=== PATIENT | female | born 1970 | race Hispanic/Latino ===

== ENCOUNTER → 2018-02-18 | Day surgery (SDC) | payer BC ==
[2018-02-16 11:29] LABS: BASOPHILS # (AUTO) 0.1 (0.0-0.1); BASOPHILS % 0.6 % (0.0-1.0); EOSINOPHILS # (AUTO) 0.1 (0.0-0.4); EOSINOPHILS % 0.9 % (0.0-6.0); HEMATOCRIT 35.5 % (34.2-44.1); HEMOGLOBIN 12.2 g/dL (12.0-16.0); LYMPHOCYTES # (AUTO) 1.9 (1.0-3.2); MEAN CORPUSCULAR HGB CONC 34.4 g/dL (31-35); MEAN CORPUSCULAR VOLUME 87.4 fL (81-99); MONOCYTES # (AUTO) 0.8 (0.2-0.8); MONOCYTES % 9.4 % (4.4-11.3); NEUTROPHILS # (AUTO) 5.7 (2.1-6.9); NEUTROPHILS % 66.9 % (38.7-80.0); PLATELET COUNT 211 x10e3/uL (140-360); RED BLOOD COUNT 4.06 x10e6/uL (3.6-5.1); RED CELL DISTRIBUTION WIDTH 12.7 % (11.7-14.4)
[2018-02-16 11:31] LABS: CLARITY,URINE CLEAR (CLEAR); COLOR,URINE YELLOW (YELLOW); KETONES,URINE NEGATIVE (NEGATIVE); LEUKOCYTE ESTERASE ,URINE NEGATIVE (NEGATIVE); NITRITE,URINE NEGATIVE (NEGATIVE); PROTEIN,URINE DIPSTICK NEGATIVE (NEGATIVE)
[2018-02-16 11:32] LABS: BILIRUBIN,URINE NEGATIVE (NEGATIVE); PREGNANCY TEST, URINE NEGATIVE (NEGATIVE); URINE UROBILINOGEN 0.2 mg/dL (0.2 - 1)
[2018-02-16 11:43] LABS: ANION GAP 12.4 mmol/L (8-16); BLOOD UREA NITROGEN 14 mg/dL (7-26); BUN/CREATININE RATIO 19 (6-25); CALCIUM 9.7 mg/dL (8.4-10.2); CARBON DIOXIDE 25 mmol/L (22-29); CHLORIDE 107 mmol/L (98-107); CREATININE, SERUM 0.73 mg/dL (0.57-1.11); EST GLOMERULAR FILTRATION RATE > 60 ML/MIN (60-); GLUCOSE 91 mg/dL (74-118); POTASSIUM 4.4 mmol/L (3.5-5.1); SODIUM 140 mmol/L (136-145)
[~2018-02-18] MED LIST: CRESTOR10 MG PO; CYCLOBENZAPRINE10 MG PO; DEXAMETHASONE SOD PHOS INJ 4 MG/ML VIAL ONE; FENTANYL CITRATE/PF 100MCG/2 ML INJ ONE; KETOROLAC TROMETHAMINE 30 MG/ML VIAL ONE; LIDOCAINE HCL 2% LOCAL INJ 5 ML SDV VIAL INJ ONE; MELOXICAM7.5 MG PO; NORCO 7.5-3251 EACH PO; ONDANSETRON HCL 4 MG ORAL DISINTEGRATING TAB ONE; ONDANSETRON HCL INJ 2 MG/ML VIAL ONE; PRAVASTATIN SOD40 MG PO; PROPOFOL IV EMULSION 10 MG/ML 20 ML VIAL ONE; PROPRANOLOL HCL80 M1 PO; SEVOFLURANE INHAL SOLN 250 ML PEN BTL ONE; SILVER NITRATE SWABS ONE; TYLENOL WITH C1 EACH PO; VASOPRESSIN INJ 20 UNIT/ML VIAL IV ONE; ZOMIG2.5 MG PO
--- NOTE | 2018-02-18 16:44 | Operative Report ---
DATE OF PROCEDURE: February 18, 2018 PREOPERATIVE DIAGNOSES 1. Abnormal uterine bleeding. 2. Endometrial polyp. POSTOPERATIVE DIAGNOSES 1. Abnormal uterine bleeding. 2. Multiple endometrial polyps. TITLE OF PROCEDURE: Hysteroscopic polypectomy via Symphion procedure and endometrial ablation via hydrothermal ablation procedure. ANESTHESIA: General with Dr. Eagle. INDICATION FOR THE OPERATION: The patient is a 47-year-old, 3 para 3, with last menstrual period February 04, 2018, status post tubal ligation in 2001 with heavy menses for the past year or two, worse in the last year, who declined oral contraceptive or other hormonal therapy. She did try antiinflammatories which did not help her bleeding. She is therefore taken to the operating room because endometrial biopsy revealed benign endometrium with a polyp and she is therefore here for hysteroscope polypectomy and HTA ablation. She is therefore taken to the operating room at this time. FINDINGS AT SURGERY: There were multiple endometrial polyps. The cavity was normal with both ostia seen after the polyps were excised via the Symphion procedure. Good ablation was obtained with the HTA device. PROCEDURE: The patient was taken to the operating room, placed on the table in the supine position. General anesthesia was administered. Patient was placed in the lithotomy position. The perineum was prepared and draped in the usual sterile manner. Pelvic exam revealed a 6-week size anteverted uterus with no adnexal masses. The bladder was drained by in-and-out catheterization. A weighted speculum was placed in the posterior vaginal wall, then with the aid of right-angle retractor the anterior lip of the cervix was grasped with single-tooth tenaculum. Then using Cowart dilators, the endocervical canal was dilated up to #16. Then the hysteroscope was placed and the contents of the endometrial cavity were visualized with findings of multiple polyps mostly coming off the posterior wall but some coming off the sidewall and an occasional one coming off the anterior wall. The decision was made to proceed with a Symphion polypectomy. The Symphion device was set up and then using the Symphion device all the polyps were removed and sent to pathology for definitive diagnosis. The polypectomy was performed until no further polyps were seen within the endometrial cavity and at this point both tubal ostia could be easily seen. At this point decision was made to proceed with HTA ablation. The scope was changed to the HTA scope and then once we were sure that there was a good seal with no leakage of fluid, we proceeded with the HTA ablation. The water was heated to 80 degrees celsius, held between 80 and 90 degrees for 10 minutes with no leakage noted and the ablation under direct visualization was noted with the tissue turning from pink to white. After 10 minutes a very good ablation was obtained and we searched and visualized the ostia again noting the good ablation and at this point the procedure was deemed terminated. All the instruments were removed from the vagina. There were no complications noted. Estimated blood loss was 10 mL. The patient tolerated the procedure well, was transferred from the operating room to recovery room in stable condition. Job#: [id number] LAUREN
== END | disposition home or self-care (01) ==
LOC: OR 11:40
PROVIDERS: ATTEND Obstetrics & Gynecology
DX: N84.0 Polyp of corpus uteri (principal); I10 Essential (primary) hypertension; G43.909 Migraine, unspecified, not intractable, without status migrainosus; E78.6 Lipoprotein deficiency; Z01.810 Encounter for preprocedural cardiovascular examination; Z01.812 Encounter for preprocedural laboratory examination
CPT/HCPCS: 36415; 58563; 80048; 81003; 81025; 85025; 88305; 93005; J1100; J1885; J2001; J2405

== ENCOUNTER 2018-09-21 17:00 | Outpatient (RCR) | payer BC ==
[~2018-09-21 17:00] MED LIST changes: -DEXAMETHASONE SOD PHOS INJ 4 MG/ML VIAL ONE; -FENTANYL CITRATE/PF 100MCG/2 ML INJ ONE; -KETOROLAC TROMETHAMINE 30 MG/ML VIAL ONE; -LIDOCAINE HCL 2% LOCAL INJ 5 ML SDV VIAL INJ ONE; -ONDANSETRON HCL 4 MG ORAL DISINTEGRATING TAB ONE; -ONDANSETRON HCL INJ 2 MG/ML VIAL ONE; -PROPOFOL IV EMULSION 10 MG/ML 20 ML VIAL ONE; -SEVOFLURANE INHAL SOLN 250 ML PEN BTL ONE; -SILVER NITRATE SWABS ONE; -VASOPRESSIN INJ 20 UNIT/ML VIAL IV ONE
== END 2018-09-22 ==
LOC: PT 17:00
PROVIDERS: ATTEND Neurological Surgery
DX: M51.16 Intervertebral disc disorders with radiculopathy, lumbar region (principal); M62.81 Muscle weakness (generalized); M53.86 Other specified dorsopathies, lumbar region

== ENCOUNTER → 2018-10-20 | Outpatient (RCR) | payer BC | LOC: PT 09-23 10:24 | PROVIDERS: ATTEND Neurological Surgery | DX: M51.16 Intervertebral disc disorders with radiculopathy, lumbar region (principal); M62.81 Muscle weakness (generalized); M53.87 Other specified dorsopathies, lumbosacral region | CPT/HCPCS: 97139 ==

== ENCOUNTER → 2019-10-27 | Outpatient (CLI) | payer BC ==
[~2019-10-27] MED LIST changes: +GADOBENATE DIMEGLUMINE 1 ML IV ONE
--- NOTE | 2019-10-27 13:22 | Diagnostic Imaging Report ---
History: Intervertebral disc disorder Comparison studies: None Technique: Sagittal, coronal and axial T2 , sagittal T1 and IR, axial spin density oblique. Intravenous contrast: 13 cc of MultiHance Findings: Number of lumbar vertebral bodies:5 Alignment: Normal lordosis.No scoliosis. Soft tissues: No T2 hyperintense inflammatory changes. Paraspinal muscles: No signal abnormalities. No atrophy. Lower thoracic cord:Normal in signal and morphology. The tip of the conus is at T12-L1. Cauda equina: No masses. No arachnoiditis. Vertebrae: Normal in height and signal intensity. No compression fractures, infection or neoplasm. Degenerative changes: L1-L2: No abnormalities. L2-L3: No abnormalities. L3-L4: No abnormalities. L4-L5: No abnormalities. L5-S1: Disc degeneration with loss of T2 signal. Asymmetric right disc bulge with superimposed small right central disc protrusion measuring 4 mm in AP diameter results in no significant canal stenosis and moderate right foraminal narrowing. The right exiting L5 nerve root appears flattened in CC dimension with fat surrounding the nerve. Enhancing granulation tissue at the right subarticular recess and right medial foramen inferior aspect. Nonvisualization of the ligamentum flavum and laminar irregularity on the right , related to hemilaminectomy changes Additional findings: None IMPRESSION: Right hemilaminectomy changes at L5-S1 with enhancing granulation tissue at the right subarticular recess and medial foramen. Asymmetric right disc bulge with superimposed small right central disc protrusion without canal stenosis and moderate right foraminal narrowing. Signed by: DR Tay Bentley M.D. on 10/27/2019 1:20 PM
== END ==
LOC: MRI 10:20
PROVIDERS: ATTEND Neurological Surgery
DX: M51.16 Intervertebral disc disorders with radiculopathy, lumbar region (principal)
CPT/HCPCS: 72158; A9577

== ENCOUNTER 2019-11-20 17:00 | Outpatient (RCR) | payer BC ==
[~2019-11-20 17:00] MED LIST changes: -GADOBENATE DIMEGLUMINE 1 ML IV ONE
== END 2019-11-21 ==
LOC: PT 17:00
PROVIDERS: ATTEND Neurological Surgery
DX: M54.5 Low back pain (principal); M51.16 Intervertebral disc disorders with radiculopathy, lumbar region; M62.81 Muscle weakness (generalized)
CPT/HCPCS: 97139

== ENCOUNTER 2020-01-10 16:59 | Outpatient (RCR) | payer BC | END 2020-01-21 | LOC: PT 16:59 | PROVIDERS: ATTEND Neurological Surgery | DX: M51.16 Intervertebral disc disorders with radiculopathy, lumbar region (principal); M54.5 Low back pain; M62.81 Muscle weakness (generalized) | CPT/HCPCS: 97139 ==

== ENCOUNTER 2020-02-05 17:00 | Outpatient (RCR) | payer BC | END 2020-02-20 | LOC: PT 17:00 | PROVIDERS: ATTEND Neurological Surgery | DX: M51.16 Intervertebral disc disorders with radiculopathy, lumbar region (principal); M62.81 Muscle weakness (generalized); M54.5 Low back pain | CPT/HCPCS: 97139 ==

== ENCOUNTER 2021-07-10 17:07 | Outpatient (RCR) | payer BC | END 2021-07-22 | LOC: PT 17:07 | PROVIDERS: ATTEND Anesthesiology Pain Medicine | DX: M51.16 Intervertebral disc disorders with radiculopathy, lumbar region (principal); M62.81 Muscle weakness (generalized); M54.50 Low back pain, unspecified ==

== ENCOUNTER 2021-07-30 16:08 | Outpatient (RCR) | payer BC | END 2021-08-22 | LOC: PT 16:08 | PROVIDERS: ATTEND Anesthesiology Pain Medicine | DX: M54.50 Low back pain, unspecified (principal); M25.572 Pain in left ankle and joints of left foot ==

== ENCOUNTER 2021-09-18 17:00 | Outpatient (RCR) | payer BC | END 2021-09-22 | LOC: PT 17:00 | PROVIDERS: ATTEND Anesthesiology Pain Medicine | DX: M54.17 Radiculopathy, lumbosacral region (principal); M25.572 Pain in left ankle and joints of left foot; M25.521 Pain in right elbow | CPT/HCPCS: 97139 ==

== ENCOUNTER → 2021-10-20 | Outpatient (RCR) | payer BC | LOC: PT 09-25 10:52 | PROVIDERS: ATTEND Anesthesiology Pain Medicine | DX: M54.17 Radiculopathy, lumbosacral region (principal); M25.572 Pain in left ankle and joints of left foot; M25.521 Pain in right elbow; M62.81 Muscle weakness (generalized); M53.87 Other specified dorsopathies, lumbosacral region; M25.60 Stiffness of unspecified joint, not elsewhere classified | CPT/HCPCS: 97139 ==

== ENCOUNTER 2021-10-27 17:00 | Outpatient (RCR) | payer BC | END 2021-11-20 | LOC: PT 17:00 | PROVIDERS: ATTEND Anesthesiology Pain Medicine | DX: M54.17 Radiculopathy, lumbosacral region (principal); M25.572 Pain in left ankle and joints of left foot; M25.672 Stiffness of left ankle, not elsewhere classified; M25.521 Pain in right elbow; M62.81 Muscle weakness (generalized) | CPT/HCPCS: 97139 ==